=== PATIENT | male | born 1985 | race Caucasian/White ===

== ENCOUNTER 2023-10-01 19:08 | Emergency (ER) | payer SELFPAY ==
[~2023-10-01] VITALS: Ht 165.1 cm; Wt 68.0 kg
[2023-10-01 19:14] VITALS: BP 133/78; PULSE 99; RESP 18; TEMP 97.9; O2SAT 99
== END 2023-10-01 20:26 | disposition left against medical advice (07) ==
LOC: ER 19:24
DX: R10.9 Unspecified abdominal pain (principal); Z53.21 Procedure and treatment not carried out due to patient leaving prior to being seen by health care provider
CPT/HCPCS: 99281